=== PATIENT | female | born 1950 | race Caucasian/White ===

== ENCOUNTER → 2016-12-24 | Outpatient (CLI) | payer MEDICARE, BC ==
[~2016-12-24] MED LIST: CELEXA40 MG PO; CEPHALEXIN500 M1 PO; DICLOFENAC; LEVOTHYROXINE PO; LOPRESSOR 550 MG/TAB PO; LOTENSIN10 MG PO; NORCO 325 MG-51 TAB PO
== END ==
LOC: MC.RAD 08:56
DX: Z12.31 Encounter for screening mammogram for malignant neoplasm of breast (principal)

== ENCOUNTER → 2021-10-05 | Outpatient (CLI) | payer MEDICARE, BC | LOC: MC.RAD 06:55 | DX: Z12.31 Encounter for screening mammogram for malignant neoplasm of breast (principal); Z78.0 Asymptomatic menopausal state ==

== ENCOUNTER → 2023-03-12 | Outpatient (CLI) | payer MEDICARE, BC | LOC: CANSCHCLI → MC.RAD 09:55 | DX: Z12.31 Encounter for screening mammogram for malignant neoplasm of breast (principal) ==